=== PATIENT | male | born 1955 | race Two or more races ===

== ENCOUNTER 2022-12-20 17:51 | Inpatient (IN) | payer MEDICARE, MEDICAID ==
[~2022-12-20] VITALS: Ht 185.4 cm; Wt 167.8 kg
[2022-12-20 21:30] VITALS: BP 155/73; TEMP 97.9
--- NOTE | 2022-12-20 21:30 | NUR ---
MS CHIEF COOK NOTE RECEIVED REPORT FROM MICAELA IVAN FROM [facility]. PT DIRECT ADMIT FROM [facility]. PT ARRIVED VIA AMBULANCE IN [facility]. PT A/O X4, ABLE TO MAKE NEEDS KNOWN. PT UNABLE TO AMBULATE. ON ROOM AIR, TOLERATING RA WELL. NO RESPIRATORY DISTRESS NOTED. PT C/O PAIN TO BLE , BILATERAL SHOULDERS, AND BACK. MD MADE AWARE. NEW ORDER RECEIVED FOR DILAUDID 1 MG Q4 HRS. PT HAS IV ACCESS TO LEFT FA #20G. SKIN ASSESSMENT COMPLETED. PT HAS WOUND TO LEFT LEG, EDEMA TO NAV LEGS, SKIN SCRATCH TO RIGHT LEG, AND RASH TO ABDOMEN. PICTURES TAKEN, AND PLACED IN CHART. BELONGING CHECKED, AND BELONGING LIST SIGNED, AND PLACED IN CHART. SAFETY MEASURES IN PLACE: BED IN LOW POSITION, SR UP X2, CALL LIGHT WITHIN REACH. WILL CONTINUE TO MONITOR PT.
[2022-12-20] MEDS: HYDROMORPHONE 1 MG/1 ML DISP.SYRIN IV PRN (22:25)
--- NOTE | 2022-12-20 22:25 | NUR ---
MS RN NOTE PT C/O GENERALIZED PAIN. MORPHINE ADMINISTERED TO PT.
[2022-12-21] MEDS: HYDROMORPHONE 1 MG/1 ML DISP.SYRIN IV PRN ×6 (02:50→22:24)
--- NOTE | 2022-12-21 02:50 | NUR ---
MS RN NOTE PT C/O GENERALIZED PAIN. MORPHINE ADMINISTERED TO PT.
[2022-12-21] MEDS ORDERED: VANCOMYCIN 2 GM in IV D5W 500 ML IV ONE (03:00)
[2022-12-21] MEDS ORDERED: CEFTRIAXONE 2 G in IV D5W 100 ML IV SCH (03:00)
[2022-12-21] MEDS ORDERED: ONDANSETRON HCL/PF 4 MG/2 ML VIAL IVP PRN (03:00)
[2022-12-21] MEDS ORDERED: Z GUARD REMEDY 4 OZ OINT TP PRN (03:00)
[2022-12-21] MEDS ORDERED: ACETAMINOPHEN 325 MG TABLET PO PRN (03:00)
[2022-12-21] MEDS ORDERED: VANCOMYCIN 1 GM /D5W 250 ML PB IV ONE (03:33)
[2022-12-21] MEDS ORDERED: NALOXONE HCL 0.4 MG/ML AMPUL IV PRN (06:00)
--- NOTE | 2022-12-21 06:06 | NUR ---
RN NOTE IN ASSISTING ASSIGNED NURSE FOR PATIENT (LIYA RN), I SPOKE W/ THE PATIENT HE HAD REPORTED SEVERE BREAKTHROUGH PAIN OF 10/10 FOR LOWER BACK. PATIENT HAD ONLY BEEN RECEIVING DILAUDID 1MG Q4HR PRN. ON-CALL MD, BEST NEW, CONTACTED FOR ADDITIONAL PAIN MED ORDER FOR BREAKTHROUGH PAIN. ORDER GIVEN FOR OXYCODONE 10MG Q4HR PRN. MD'S ORDERS PLACED. PATIENT EDUCATED ON UPDATED PAIN MANAGEMENT REGIMEN. PATIENT ACKNOWLEDGED. PATIENT O/W STABLE. LIYA, ASSIGNED RN, WILL CONTINUE TO FOLLOW PATIENT.
--- NOTE | 2022-12-21 06:30 | NUR ---
MS RN CLOSING NOTE PT LEFT AWAKE, IN BED. NO S/S OF ACUTE DISTRESS NOTED. WOUND CARE DONE TO LEFT LEG. UA COLLECTED. ALL DUE MEDS ADMINISTERED. PT LEFT CLEAN, AND DRY. CONDOM CATHETER INSERTED EARLIER BY PT'S REQUEST, BUT F/C OUT AT THIS TIME. WILL ENDORSE PT TO AM SHIFT NURSE FOR JUSTYN.
--- NOTE | 2022-12-21 06:55 | NUR ---
MS RN NOTE PT C/O GENERALIZED PAIN. MORPHINE ADMINISTERED TO PT.
[2022-12-21 07:00] VITALS: BP 147/75; TEMP 97.7
[2022-12-21 07:10] LABS: BASOPHILS % (AUTO) 0.4 % (0.0-2.0); EOSINOPHILS % (AUTO) 3.2 % (0.0-6.0); HEMATOCRIT 44 % (39-51); HEMOGLOBIN 14.3 g/dL (13.5-17.5); LYMPHOCYTES # (AUTO) 0.7 K/uL (0.8-4.8); LYMPHOCYTES % (AUTO) 18.8 % (20.0-44.0); MEAN CORPUSCULAR HGB CONC 33 g/dl (31.0-36.0); MEAN CORPUSCULAR VOLUME 78 fL (80-96); MONOCYTES # (AUTO) 0.3 K/uL (0.1-1.30); MONOCYTES % (AUTO) 8.8 % (2.0-12.0); NEUTROPHILS # (AUTO) 2.6 K/uL (1.8-8.9); NEUTROPHILS % (AUTO) 68.8 % (43.0-81.0); PLATELET COUNT (AUTO) 65 K/uL (150-450); RED BLOOD CELL COUNT(AUTO) 5.65 MIL/uL (4.5-6.0); WHITE BLOOD COUNT (AUTO) 3.8 K/uL (4.3-11.0)
--- NOTE | 2022-12-21 07:20 | NUR ---
RN OPENING NOTE RECIVED PATIENT LAYING IN BED A/OX4. RONAL IS ON RA WITH NO SIGNS OF SOB OR DISTRESS AT THIS TIME. IV LFA #20G IS PLACED AND INTACT RUNNING LR 100ML/HR. PT IS COMPLAINING OF PAIN IN R SHOULD RADIATING DOWN TO L/S, 9/10 PAIN SCALE AND WITH WATERY EYES. PT IS REQUESTING FOR OXYCODONE 10MG AT THIS TIME. SAFTEY PRECUASTION IN PLACE, BED LOWEST POSITION, CALL LIGHT IN REACH HOB ELEVATED. WILL CONTINUE TO MONITOR.
[2022-12-21 07:30] LABS: CALCIUM, SERUM 9.7 mg/dL (8.5-10.1); CREATININE 1.3 mg/dL (0.6-1.3); POTASSIUM 3.6 mmol/L (3.5-5.1)
[2022-12-21 07:31] LABS: ALBUMIN 2.7 g/dL (3.4-5.0); BILIRUBIN,TOTAL 1.6 mg/dL (0.2-1.0); MAGNESIUM 1.7 mg/dL (1.8-2.4); PHOSPHORUS 1.8 mg/dL (2.5-4.9); TOTAL PROTEIN, SERUM 6.2 g/dL (6.4-8.2)
[2022-12-21] MEDS: PANTOPRAZOLE 40 MG TABLET.DR PO SCH (07:47)
[2022-12-21 07:58] LABS: THYROID STIMULATING HORMONE 10.816 uIU/mL (0.358-3.74)
[2022-12-21] MEDS ORDERED: ENOXAPARIN SODIUM 40 MG/0.4 ML DISP.SYRIN SQ SCH (09:00)
[2022-12-21] MEDS: oxyCODONE IR immediate release 5 MG PO PRN ×3 (09:29→18:20)
[2022-12-21] MEDS: CEFTRIAXONE 2 G in IV D5W 100 ML IV SCH (09:30)
[2022-12-21] MEDS ORDERED: MAGNESIUM OXIDE 400 MG TABLET PO ONE (10:00)
[2022-12-21 13:36] LABS: BASOPHILS % (MANUAL) 0 % (0.0-2.0); EOSINOPHILS % (MANUAL) 2 % (0-4); LYMPHOCYTES % (MANUAL) 20 % (16-48); MONOCYTES % (MANUAL) 6 % (0-11.0); NEUTROPHILS % (MANUAL) 72 (42-76)
[2022-12-21] MEDS ORDERED: ESCI10TA GT (14:57)
[2022-12-21] MEDS ORDERED: MELA3TAB41 PO (14:57)
[2022-12-21] MEDS ORDERED: SACU1TAB PO (14:57)
[2022-12-21] MEDS ORDERED: QUET25TA PO (14:57)
[2022-12-21] MEDS ORDERED: DIVA250T PO (14:57)
[2022-12-21] MEDS ORDERED: OLAN5TAB3 PO (14:57)
[2022-12-21] MEDS ORDERED: FAMO20TA8 PO (14:57)
[2022-12-21] MEDS ORDERED: RISP0.5T5 PO (14:57)
[2022-12-21] MEDS ORDERED: LORA-259 PO (14:57)
[2022-12-21] MEDS ORDERED: GUAI5SYR GT (15:01)
[2022-12-21] MEDS ORDERED: K PHOS NEUTRAL 250 MG TABLET PO ONE (15:30)
[2022-12-21] MEDS: VANCOMYCIN 1 GM in IV D5W 250 ML IV SCH (15:51)
[2022-12-21] MEDS ORDERED: LORAZEPAM 1 MG TABLET PO ONE ×2 (16:00)
--- NOTE | 2022-12-21 19:00 | NUR ---
RN OPENING NOTE RECEIVED PT AWAKE IN BED. PT IS A/O X 4, ABLE TO MAKE NEEDS KNOWN. PT IS IN RA, TOLERATING WELL, BREATHING EVEN AND UNLABORED @ THIS TIME. PT IV IS PRESENT ON THE LEFT FOREARM #20G RUNNING LR @100,LS/HR, PATENT, INTACT AND FLUSHES WELL W/ NO S&SX OF INFILTRATION @ SITE NOTED. PT'S URINAL IS @ BEDSIDE. SAFETY MEASURE IS IN PLACE. BED IN LOWEST AND LOCKED POSITION. SIDE RAILS UP X 2. BEDSIDE TABLE AND CALL LIGHT IS WITHIN REACH. WILL CONTINUE TO MONITOR THE PT ACCORDINGLY.
[2022-12-21 20:00] VITALS: BP 148/80; TEMP 97.4
[2022-12-21] MEDS: LORAZEPAM 1 MG TABLET PO PRN (22:11)
[2022-12-21] MEDS: IV LR 1000 ML 1,000 ML IV PRN (22:35)
[2022-12-22] MEDS: oxyCODONE IR immediate release 5 MG PO PRN ×4 (01:22→18:08)
[2022-12-22] MEDS: VANCOMYCIN 1 GM in IV D5W 250 ML IV SCH ×2 (02:00→15:21)
[2022-12-22] MEDS: HYDROMORPHONE 1 MG/1 ML DISP.SYRIN IV PRN ×5 (03:26→20:32)
[2022-12-22 05:38] LABS: BASOPHILS % (AUTO) 0.2 % (0.0-2.0); EOSINOPHILS % (AUTO) 4.4 % (0.0-6.0); HEMATOCRIT 46 % (39-51); HEMOGLOBIN 14.8 g/dL (13.5-17.5); LYMPHOCYTES # (AUTO) 0.6 K/uL (0.8-4.8); LYMPHOCYTES % (AUTO) 16.8 % (20.0-44.0); MEAN CORPUSCULAR HGB CONC 32 g/dl (31.0-36.0); MEAN CORPUSCULAR VOLUME 79 fL (80-96); MONOCYTES # (AUTO) 0.4 K/uL (0.1-1.30); MONOCYTES % (AUTO) 11.6 % (2.0-12.0); NEUTROPHILS # (AUTO) 2.4 K/uL (1.8-8.9); PLATELET COUNT (AUTO) 55 K/uL (150-450); WHITE BLOOD COUNT (AUTO) 3.6 K/uL (4.3-11.0)
[2022-12-22 05:58] LABS: CALCIUM, SERUM 9.7 mg/dL (8.5-10.1); CREATININE 1.2 mg/dL (0.6-1.3); MAGNESIUM 1.8 mg/dL (1.8-2.4); PHOSPHORUS 2.5 mg/dL (2.5-4.9); POTASSIUM 3.6 mmol/L (3.5-5.1)
--- NOTE | 2022-12-22 06:41 | NUR ---
RN CLOSING NOTE PT AWAKE & RESTING COMFORTABLY IN BED. PT IS A/O X 4, RESPONSIVE & FOLLOWS VERBAL COMMAND. PT IS IN RA, W/ NO RESPIRATORY DISTRESS @ THIS TIME. PT IV IS PRESENT ON THE LEFT FOREARM #20G RUNNING LR @100,LS/HR, PATENT, INTACT AND FLUSHES WELL W/ NO S&SX OF INFILTRATION @ SITE NOTED. SAFETY MEASURE IS IN PLACE. BED IN LOWEST AND LOCKED POSITION. SIDE RAILS UP X 2. BEDSIDE TABLE AND CALL LIGHT IS WITHIN REACH. BED ALARM IS ON.WILL ENDORSE PT TO THE NEXT SHIFT FOR JUSTYN.
--- NOTE | 2022-12-22 07:22 | NUR ---
RN OPENING NOTE RECEIVED PATIENT RESTING IN BED A/OX4. ABLE TO MAKE NEEDS KNOWN. TOLERATING ROOM AIR, WITH EVEN AND UNLABORED BREATHING, NO SIGNS OF SOB OR DISTRESS AT THIS TIME. IV LFA #20G IS PLACED AND INTACT RUNNING LR 100ML/HR. PT IS COMPLAINING OF PAIN ON HIS SHOULDER, AT THE BACK AND ON HIS LEG , 9/10 PAIN SCALE WITH FACIAL GRIMACING ALSO. PATIENT REQUESTING HIS DILAUDID TO BE GIVEN EVERY 4 HOURS AND OXYCODONE. SAFETY PRECAUTION IN PLACE, BED LOWEST POSITION, CALL LIGHT IN REACH HOB ELEVATED. WILL CONTINUE TO MONITOR.
[2022-12-22] MEDS: LEVOTHYROXINE SODIUM 50 MCG TABLET PO SCH (07:51)
[2022-12-22] MEDS: PANTOPRAZOLE 40 MG TABLET.DR PO SCH (07:51)
[2022-12-22 08:14] VITALS: BP 122/96; TEMP 98
[2022-12-22] MEDS: LORAZEPAM 1 MG TABLET PO PRN ×2 (09:03→17:38)
--- NOTE | 2022-12-22 10:13 | NUR ---
WOUND CARE CONSULT: PT PRESENTS WITH REDNESS TO BUTTOCKS AND WOUNDS TO LOWER LEGS, PRESENT ON ADMISSION. DR RAMIREZ CALLED FOR DPM CONSULT. PT ABLE TO SIT AT EDGE OF BED AND ASSIST WITH TURNING/REPOSITIONING. MD IN AGREEMENT WITH PLAN OF CARE.
[2022-12-22] MEDS: CEFTRIAXONE 2 G in IV D5W 100 ML IV SCH (10:17)
[2022-12-22] MEDS: IV LR 1000 ML 1,000 ML IV PRN (10:18)
--- NOTE | 2022-12-22 10:45 | NUR ---
MS RN NOTE INFORMED HOSPITALIST BANDAR PATIENT VERBALIZED DEPRESSION AND REQUESTING FOR PSYCH CONSULT. PSYCH CONSULT ORDER C/O DR. CHAMBERLAIN, FACE SHEET FAXED TO [employer].
[2022-12-22] MEDS ORDERED: AZIT1PAC9 PO (12:06)
[2022-12-22] MEDS ORDERED: NITR100C15 PO (12:08)
[2022-12-22] MEDS ORDERED: LEVO75TA7 PO (12:09)
[2022-12-22] MEDS: VITAMINS A AND D 56.7 GM TUBE TP SCH (12:30)
--- NOTE | 2022-12-22 12:55 | NUR ---
MS RN NOTE RECEIVED DISCHARGE ORDER FROM HOSPITALIST BANDAR. INFORMED LAUNDRY ASSISTANT WENDY AND CHARGE NURSE WHIT PATIENT REFUSING TO GO BACK TO PREVIOUSLY ASSISTED LIVING HE HAD AT [facility].
[2022-12-22 13:28] LABS: BASOPHILS % (MANUAL) 0 % (0.0-2.0); EOSINOPHILS % (MANUAL) 6 % (0-4); LYMPHOCYTES % (MANUAL) 15 % (16-48); MONOCYTES % (MANUAL) 9 % (0-11.0); NEUTROPHILS % (MANUAL) 70 (42-76)
[2022-12-22 16:06] VITALS: BP 136/96; TEMP 98
[2022-12-22 17:58] LABS: BILIRUBIN,URINE NEGATIVE (NEGATIVE); COLOR,URINE YELLOW (YELLOW); LEUKOCYTE ESTERASE ,URINE NEGATIVE (NEGATIVE); NITRITE, URINE NEGATIVE (NEGATIVE); PROTEIN,URINE 3+ mg/dl (NEGATIVE); UGLUCOSE NEGATIVE (NEGATIVE); UROBILINOGEN,URINE 0.2 EU/dL (0.2)
[2022-12-22 18:35] LABS: BACTERIA,URINE RARE /HPF (None Seen); RBC,URINE 21-50 /HPF (0-2); WBC,URINE 0-2 /HPF (0-3)
[2022-12-22 18:36] LABS: MUCUS,URINE Few /LPF (None Seen)
--- NOTE | 2022-12-22 18:45 | NUR ---
RN CLOSING NOTES PATIENT RESTING IN BED A/OX4. ABLE TO MAKE NEEDS KNOWN. TOLERATING ROOM AIR, WITH EVEN AND UNLABORED BREATHING, NO SIGNS OF SOB OR DISTRESS AT THIS TIME. IV LFA #20G IS PLACED AND INTACT RUNNING LR 100ML/HR. PT IS COMPLAINING OF PAIN ON HIS SHOULDER, AT THE BACK AND ON HIS LEG , 9/10 PAIN SCALE WITH FACIAL GRIMACING ALSO, PRN PAIN MEDICATIONS GIVEN ORDERED. PATIENT REQUESTING HIS DILAUDID TO BE GIVEN EVERY 4 HOURS AND OXYCODONE AND ATIVAN EVERY 8 HOURS. STILL WAITING FOR PLACEMENT C/O CM. SAFETY PRECAUTION IN PLACE, BED LOWEST POSITION, CALL LIGHT IN REACH HOB ELEVATED. WILL CONTINUE TO MONITOR.
[2022-12-22 20:00] VITALS: BP 136/82; TEMP 98.1
--- NOTE | 2022-12-22 20:00 | NUR ---
MS KAREEM INITIAL NOTES Received report from am nurse and seen patient in bed awake and alert with IVF of LR at 100ml/hr on his Left forearm patent and intact. pt complaint of generalized pain 9/10. Dressing on his both lower legs dry and intact. No signs any acute distress noted. kept him warm and comfortable at all times. pain medication will be administer by another nurse I told to the patient. Bed in low and lock in position with side rails x2 up . will continue monitoring.
--- NOTE | 2022-12-22 20:35 | NUR ---
noc rn note- pain management patient c/o 9.5/10 generalized pain "mostly on my shoulder" per patient. Given Dilaudid 1mg as ordered PRN. Primary nurse, Christina aware and will re-assess.
[2022-12-23] MEDS: HYDROMORPHONE 1 MG/1 ML DISP.SYRIN IV PRN ×5 (00:25→20:59)
--- NOTE | 2022-12-23 00:29 | NUR ---
MS KAREEM NOTES DILAUDID 1 MG GIVEN NIMESH IVP PER PT REQUESTED AND ORDERED FOR HIS PAIN. SAFETY PRECAUTION IMPLEMENTED AND OBSERVED. WILL CONTINUE MONITORING.
[2022-12-23] MEDS: oxyCODONE IR immediate release 5 MG PO PRN ×3 (02:04→16:44)
--- NOTE | 2022-12-23 02:05 | NUR ---
MS KAREEM NOTES PATIENT CALLED AFTER ASSEMBLER GOLF WOOD HEAD CAME TO BLOOD DRAW FOR VANCO TROUGH . HE SAID HE NEEDS HIS OXY IR HIS BREAK TROUGH MEDICATION , WHEN I WENT TO HIS ROOM I NOTICED THAT ITS LOOK LIKE HE'S NOT ON PAIN , EVEN ON HIS FACE , HE WATCHING TV AND DRINKING AT THE SAME TIME.THEN AFTER PAIN MEDS GIVEN HE ASK RIGHT AWAY WHAT TIME HIS DILAUDID. I SPOKE TO HIM THAT HIS DILAUDID IS NOT A ROUTINE MEDICATION THAT HE CAN GET IT EVERY 4 HRS EVEN HE'S NOT IN PAIN . ITS A PRN MEDICATION AND DEPENDS ON HIS PAIN LEVEL. PT JUST LOOK AT ME AND STATES"THANK YOU ".
--- NOTE | 2022-12-23 03:00 | NUR ---
MS KAREEM NOTES NOTIFY THE PHARMACY ECONOMICS TEACHER REGARDING THE VANCO TROUGH LEVEL THAT IS NOT DRAWN BECAUSE PATIENT REFUSING ANOTHER BLOOD DRAW EVEN I TOLD HIM THE PURPOSE OF IT. SPOKE TO JAMA AND SHE TOLD MET THAT SHE WILL RE-SCHEDULE AT 2 PM INSTEAD. WILL CONTINUE MONITORING.
[2022-12-23] MEDS: VANCOMYCIN 1 GM in IV D5W 250 ML IV SCH ×2 (03:20→15:59)
--- NOTE | 2022-12-23 05:51 | NUR ---
MS SWEET POTATO DISINTEGRATOR NOTES PT CALLED AND ASKING FOR HIS DILAUDID FOR HIS SHOULDER AND BACK PAIN , I SPOKE TO HIM THAT ANOTHER WILL ADMINISTER THE PAIN MEDICATION. PT ALSO REFUSE TO HAVE BLOOD DRAW AT THIS TIME. HE STATES HE WANTS TO SLEEP MORE EVEN HE JUST WOKE UP A WHILE AGO AND HE SAID THAT HE JUST TAKE HIS NAP . NO SIGNS OF ANY ACUTE DISTRESS NOTED.
--- NOTE | 2022-12-23 06:45 | NUR ---
MS TYPEWRITER RIBBON WINDER CLOSING NOTES PT RESTING AT THIS TIME AFTER PAIN MEDICATION GIVEN. BREATHING EVEN AND NON-LABORED, NOT IN ANY ACUTE DISTRESS NOTED. ALL DUE MEDS GIVEN AND ALL NEEDS MET. KEPT HIM WARM AND COMFORTABLE AT ALL TIMES. BED IN LOW AND LOCK IN POSITION WITH SIDE RAILS X2 UP. PLACE CALL LIGHT AT REACH. WILL ENDORSE TO AM NURSE FOR CONTINUITY OF CARE.
[2022-12-23] MEDS: LEVOTHYROXINE SODIUM 50 MCG TABLET PO SCH (07:24)
[2022-12-23] MEDS: PANTOPRAZOLE 40 MG TABLET.DR PO SCH (07:24)
--- NOTE | 2022-12-23 07:35 | NUR ---
RN opening note received patient awake in bed watching tv, a/ox4. patient has no s/s of apparent distress in room air, breathing even and unlabored. no complaint of pain or difficulty of breathing at this time. IV access at left forearm g#20 with LR running @100 ml/hr. patent, intact, and infusing well. safety measures in place, bed in lowest, locked position, call light within reach. side rails up X2. will continue with patient's plan of care.
[2022-12-23 07:44] LABS: CALCIUM, SERUM 9.3 mg/dL (8.5-10.1); CREATININE 1.2 mg/dL (0.6-1.3)
[2022-12-23 08:05] VITALS: BP 129/63; TEMP 97.7
--- NOTE | 2022-12-23 08:45 | NUR ---
RN NOTES OXYCODONE 10MG GIVEN PER PT REQUESTED AND ORDERED FOR HIS PAIN. SAFETY PRECAUTION IMPLEMENTED AND OBSERVED. WILL CONTINUE TO MONITOR PATIENT.
[2022-12-23] MEDS: VITAMINS A AND D 56.7 GM TUBE TP SCH (09:09)
[2022-12-23] MEDS: CEFTRIAXONE 2 G in IV D5W 100 ML IV SCH (09:30)
--- NOTE | 2022-12-23 11:20 | NUR ---
RN NOTES DILAUDID 1MG GIVEN PER PT REQUESTED AND ORDERED FOR HIS PAIN. SAFETY PRECAUTION IMPLEMENTED AND OBSERVED. WILL CONTINUE TO MONITOR PATIENT.
[2022-12-23] MEDS: DULOXETINE HCL 30 MG CAPSULE.DR PO SCH (12:51)
--- NOTE | 2022-12-23 15:05 | NUR ---
RN NOTE CALLED PHARMACY AND SPOKE TO CLIFF. I ASKED TO SEND THE IV VANCO FOR THE PATIENT BECAUSE IT WAS DUE AT 1500. SHE TOLD ME THAT THE TECH IS COMING ALREADY. YESTERDAY, PATIENT REFUSED FOR BLOOD DRAW FOR VANCO THROUGH. SPOKE TO CLIFF AND WHIT (CHARGE NURSE) IF I WILL GIVE THE VANCO THAT WAS DUE TODAY EVEN THOUGH THERE IS NO RESULT FOR VANCO THROUGH. THEY AGREED TO GIVE THE VANCO.
--- NOTE | 2022-12-23 15:25 | NUR ---
RN NOTE DILAUDID 1MG GIVEN PER PT REQUESTED AND ORDERED FOR HIS GENERALIZED PAIN. SAFETY PRECAUTION IMPLEMENTED AND OBSERVED. WILL CONTINUE TO MONITOR PATIENT.
--- NOTE | 2022-12-23 15:49 | NUR ---
RN NOTE CALLED PHARMACY FOR THE 2ND TIME AND SPOKE TO CLIFF AGAIN. ASKED TO SEND THE IV VANCO FOR THE PATIENT BECAUSE IT WAS DUE AT 1500. SHE TOLD ME THAT THE TECH IS COMING ALREADY.
[2022-12-23 16:00] VITALS: BP 120/80; TEMP 98.5
[2022-12-23] MEDS: IV LR 1000 ML 1,000 ML IV PRN (16:01)
--- NOTE | 2022-12-23 16:45 | NUR ---
RN NOTES OXYCODONE 10MG GIVEN PER PT REQUESTED AND ORDERED FOR HIS PAIN. SAFETY PRECAUTION IMPLEMENTED AND OBSERVED. WILL CONTINUE TO MONITOR PATIENT.
--- NOTE | 2022-12-23 18:30 | NUR ---
RN CLOSING NOTE patient awake in bed watching tv, a/ox4. patient has no s/s of apparent distress in room air, breathing even and unlabored. no complaint of pain or difficulty of breathing at this time. IV access at left forearm g#20 with LR running @100 ml/hr. patent, intact, and infusing well. all due meds given. safety measures in place, bed in lowest, locked position, call light within reach. side rails up X2. will endorse to the fast food shift lead nurse for karma.
--- NOTE | 2022-12-23 19:00 | NUR ---
MS KAREEM INITIAL NOTES RECEIVED REPORT FROM AM NURSE AND SEEN PATIENT AWAKE IN BED. PT IS A/O X 4, ABLE TO MAKE NEEDS KNOWN. PT IS IN RA, TOLERATING WELL, BREATHING EVEN AND UNLABORED @ THIS TIME. PT IV IS PRESENT ON THE LEFT FOREARM #20G RUNNING LR @100,LS/HR, PATENT, INTACT AND FLUSHES WELL W/ NO S&SX OF INFILTRATION @ SITE NOTED. PT'S URINAL IS @ BEDSIDE. SAFETY MEASURE IS IN PLACE. BED IN LOWEST AND LOCKED POSITION. SIDE RAILS UP X 2. BEDSIDE TABLE AND CALL LIGHT IS WITHIN REACH. WILL CONTINUE TO MONITOR THE PT ACCORDINGLY.
[2022-12-23] MEDS: hydrOXYzine PAMOATE 25 MG CAPSULE PO PRN ×2 (19:02→22:10)
[2022-12-23 20:00] VITALS: BP 163/96; TEMP 98.4
--- NOTE | 2022-12-23 21:04 | NUR ---
ms drum worker notes pain mgt. Dilaudid 1 mg IVP given by another nurse for generalized pain 01/29 . will continue monitoring.
--- NOTE | 2022-12-23 22:10 | NUR ---
MS KAREEM NOTES PT . Vistaril po given per pt requested to helped him relaxed and sleep .Safety precaution implemented and observed.
--- NOTE | 2022-12-24 | NUR ---
MS HISTOPATH TECH NOTES Pt resting with eyes closed, not in any acute distress noted. Breathing even and non-labored. IVF still infusing. will continue monitoring.
[2022-12-24] MEDS: HYDROMORPHONE 1 MG/1 ML DISP.SYRIN IV PRN ×5 (01:09→17:25)
[2022-12-24] MEDS: VANCOMYCIN 1 GM in IV D5W 250 ML IV SCH ×2 (03:11→15:29)
[2022-12-24 06:39] LABS: CALCIUM, SERUM 9.5 mg/dL (8.5-10.1); CREATININE 1.1 mg/dL (0.6-1.3); POTASSIUM 4.1 mmol/L (3.5-5.1)
--- NOTE | 2022-12-24 06:47 | NUR ---
MS LMFT CLOSING NOTES PT RESTING COMFORTABLY IN BED , ALL DUE MEDS GIVEN AND ALL NEEDS MET. PT REFUSED TO BE CLEAN UP . HE STATES THAT HE WANT TO BE CLEAN AFTER HIS BREAKFAST.RESPIRATION EVEN AND NON-LABORED, KEPT HIM COMFORTABLE AT ALL TIMES. BED IN LOW AND LOCK IN POSITION , PLACE CALL LIGHT AT REACH. WILL ENDORSE TO AM NURSE FOR CONTINUITY OF CARE.
--- NOTE | 2022-12-24 07:24 | NUR ---
MS RN OPENING NOTE RECEIVED PATIENT ON BED ASLEEP, PATIENT IS ALERT AND ORIENTED X 4. ON ROOM AIR WITH EQUAL AND UNLABORED BREATHING. COMPLAIN OF PAIN, PROVIDED WITH CALM AND QUIET ENVIORNMENT. NOT IN ANY ACUTE DISTRESS NOTED. WITH IV ACCESS ON THE LEFT FOREARM, PATENT AND INTATCT. BED IN LOW AND LOCK IN POSITION WITH SIDE RAILS X2 UP. CALL LIGHT WITHIN REACH. WITH BLE SWELLING AND WITH DRESSING DRY AND INTACT. WILL CONTINUE WITH PLAN OF CARE.
[2022-12-24 08:00] VITALS: BP 155/99; TEMP 97.6
[2022-12-24] MEDS: oxyCODONE IR immediate release 5 MG PO PRN ×3 (08:07→16:15)
[2022-12-24] MEDS: LEVOTHYROXINE SODIUM 50 MCG TABLET PO SCH (08:07)
--- NOTE | 2022-12-24 08:10 | NUR ---
MS RN NOTE COMPLAINED OF PAIN. PAIN MEDICATION GIVEN INDICATED.
[2022-12-24] MEDS: PANTOPRAZOLE 40 MG TABLET.DR PO SCH (08:24)
[2022-12-24] MEDS: DULOXETINE HCL 30 MG CAPSULE.DR PO SCH (09:13)
--- NOTE | 2022-12-24 09:15 | NUR ---
MS RN NOTE COMPLAINED OF PAIN. PAIN MEDICATION GIVEN INDICATED.
[2022-12-24] MEDS: VITAMINS A AND D 56.7 GM TUBE TP SCH (10:01)
--- NOTE | 2022-12-24 10:32 | NUR ---
SW Consult: Patient is a 67 year old over jhony male who presented to [facility] with shoulder pain. Patient was alert and oriented x4 (self, place, time, situation) and open to communication yet needed to be redirected frequently. Patient is non-ambulatory due to injury using an electric wheelchair. Reported that he's got a daughter in [place] and he will be moving in with her after he gets discharged from a SNF. Patient confirmed depression but denied any visual/auditory hallucinations or suicidal/homicidal ideation. As an SW was about to leave the room a shelter case manager walked in providing the patient with the information a SNF he will be transferred to: [facility] [address]. [place], [place] [address] DC Plan: Pt will be transferred to a SNF [facility] [address] [place] [address]
[2022-12-24] MEDS: CEFTRIAXONE 2 G in IV D5W 100 ML IV SCH (10:49)
--- NOTE | 2022-12-24 11:00 | NUR ---
MS RN NOTE MIDLINE INSERTED ORDERED. TOLERATED WELL. IV ANTIBIOTIC GIVEN ORDERED. INFUSING WELL. COMFORT MEASURES PROVIDED. IN STABLE CONDITION.
--- NOTE | 2022-12-24 11:55 | NUR ---
MS RN NOTE NOTED IV ANTIBIOTIC ON TMS , DONE ON 12/23/2022, ON TOP OF ORAL ATB ORDERED ON 12/22/2022 FOR PATIENT'S DISCHARGE. CLARIFIED ORDER WITH MD WITH ORDER TO D/C IV ATB UPON DISCHARGE AND START ON DOXYCYCLINE 100 MG PO BID X 7 DAYS. ORDERS READ BACK AND VERIFIED. ORDER ADDED TO DISCHARGE PAPERS/ INSTRUCTIONS. HEALTH TEACHING DONE REGARDING DISCHARGE AND DISCHARGE INSTRUCTIONS. VERBALIZED UNDERSTANDING AND APPRECIATION. WILL CONTINUE WITH PLAN OF CARE. EXPECTED FABRICATION INSPECTOR AT 1600 TODAY.
--- NOTE | 2022-12-24 12:10 | NUR ---
MS RN NOTE COMPLAINED OF PAIN. PAIN MEDICATION GIVEN INDICATED.
--- NOTE | 2022-12-24 13:20 | NUR ---
MS RN NOTE COMPLAINED OF PAIN. PAIN MEDICATION GIVEN INDICATED.
--- NOTE | 2022-12-24 14:30 | NUR ---
MS RN NOTE PATIENT AWATING PICK-UP, HEALTH TEACHING DONE AND VERBALIZED UNDERSTANDIGN AND APPRECIAITON. INVVENTORY SHEET DONE AND BELONGINGS ACCOUNTED FOR. ENDORSED TO M[facility]ELA [facility]. IN STABLE CONDITION. ENDORSED TO MICAELA ANDRE FOR CONTINUITY OF CARE.
[2022-12-24 16:00] VITALS: BP 155/74; TEMP 98.2
--- NOTE | 2022-12-24 16:20 | NUR ---
MS RN NOTE COMPLAINED OF PAIN. PAIN MEDICATION GIVEN INDICATED.
--- NOTE | 2022-12-24 18:00 | NUR ---
PRODUCT MANAGER E [employer] NOTES PT DISCHARGE STABLE, NO COMPLAINTS. PICKED UP BY 3 BONDING MACHINE OPERATOR VIA [employer] TO BE BROUGHT AT [facility]. ID ARM BAND REMOVED. IV ACCESS REMOVED. ALL BELONGINGS CHECKED AND RECONCILED. PT EDUCATION GIVEN TO THE PT, VERBALIZED UNDERSTANDING. DISCHARGE SUMMARY COMPLETED BY CALEB HINOJOSA.
== END 2022-12-24 17:00 | DRG 177 ==
LOC: MED 21:25
PROVIDERS: ADMIT Nurse Practitioner Acute Care; ATTEND Nurse Practitioner Acute Care
PROC: 05HF33Z Insertion of Infusion Device into Left Cephalic Vein, Percutaneous Approach (ICD-10-PCS; principal; 2022-12-24)
DX: J15.6 Pneumonia due to other Gram-negative bacteria (principal); I50.33 Acute on chronic diastolic (congestive) heart failure; N39.0 Urinary tract infection, site not specified; E44.0 Moderate protein-calorie malnutrition; D68.59 Other primary thrombophilia; Z68.42 Body mass index [BMI] 45.0-49.9, adult; L03.116 Cellulitis of left lower limb; L03.115 Cellulitis of right lower limb; L97.822 Non-pressure chronic ulcer of other part of left lower leg with fat layer exposed; I87.332 Chronic venous hypertension (idiopathic) with ulcer and inflammation of left lower extremity; F33.9 Major depressive disorder, recurrent, unspecified; R62.7 Adult failure to thrive; Z74.01 Bed confinement status; I89.0 Lymphedema, not elsewhere classified; I87.321 Chronic venous hypertension (idiopathic) with inflammation of right lower extremity; G89.29 Other chronic pain; M54.2 Cervicalgia; E03.9 Hypothyroidism, unspecified; K74.60 Unspecified cirrhosis of liver; K76.0 Fatty (change of) liver, not elsewhere classified; E66.01 Morbid (severe) obesity due to excess calories; M19.90 Unspecified osteoarthritis, unspecified site; E83.42 Hypomagnesemia; E83.39 Other disorders of phosphorus metabolism; E88.09 Other disorders of plasma-protein metabolism, not elsewhere classified; I11.0 Hypertensive heart disease with heart failure; L89.629 Pressure ulcer of left heel, unspecified stage
CPT/HCPCS: 36415; 76705-TC; 80048-TC; 80053-TC; 80061-TC; 80202-TC; 81001; 83735-TC; 84100-TC; 84439-TC; 84443-TC; 85025-TC; 87086-TC; 97110-TC; 97530-TC; A4349; A6253; A6403; G0378; J0696; J1170; J1650; J3370; J7050; J7060; J7120; Q0177